=== PATIENT | female | born 1970 | race Caucasian/White ===

== ENCOUNTER 2025-03-21 11:29 | Emergency (ER) | payer BC, SELFPAY ==
[2025-03-21 11:35] VITALS: BP 161/95
[2025-03-21 12:06] LABS: Hematocrit 37.2 % (37.0-47.0); Hemoglobin 12.7 g/dL (12.0-16.0); Mean Corp Hgb Conc. 34.1 g/dL (33.0-37.0); Mean Corpuscular Volume 84.7 fL (81.0-99.0); Nucleated Red Blood Cells % 0 %; Platelet Count 336 10^3/uL (130-400); Red Cell Dist. Width 13.5 % (11.5-14.5)
[2025-03-21 12:23] LABS: HCG, Serum Qualitative Screen Negative
[2025-03-21 12:42] VITALS: BMI 28.3
[2025-03-21] MEDS: PEPCID 20 MG IV (12:46)
[2025-03-21] MEDS: ZOFRAN 4 MG IV (12:47)
[2025-03-21 12:58] LABS: ALT (SGPT) 16 U/L (0-35); AST (SGOT) 22 U/L (14-36); Albumin 4.3 g/dl (3.5-5.0); Alkaline Phosphatase 51 U/L (38-126); Blood Urea Nitrogen 20 mg/dl (7-17); Calcium 10.0 mg/dl (8.4-10.2); Carbon Dioxide 26 mmol/L (22-30); Chloride 108 mmol/L (98-107); Estimated Creatinine Clearance 104 ml/min; Glucose 114 mg/dl (70-99); Lipase 68 U/L (23-300); Potassium 5.1 mmol/L (3.5-5.1); Sodium 138 mmol/L (135-145); Total Protein 7.0 g/dl (6.3-8.2); eGFR > 60.00
[2025-03-21] MEDS: TORADOL 15 MG IV (12:59)
[2025-03-21 13:13] VITALS: BP 128/85
[2025-03-21 13:19] LABS: Urine Character Slightly Cloudy (Clear)
[2025-03-21 13:23] VITALS: BP 128/85
[2025-03-21 13:37] LABS: Urine Red Blood Cell 60-70 /HPF (0-2); Urine Squamous Cell 21-25 /LPF (Few)
--- NOTE | 2025-03-21 13:43 | ED.GENMED ---
History of Present Illness
General
Chief Complaint: Abdominal Pain
Time Seen by Provider: 03/21/25 11:52
History of Present Illness
History of Present Illness:
53 54-year-old female presents to the emergency department for evaluation of upper abdominal pain that began this morning associated with nausea but no vomiting. States it feels comparable to when she had her biliary colic but her gallbladder has
been since removed. She denies any fevers or chills, denies any diarrhea. No ill contacts, prior abdominal surgery includes cholecystectomy and . Has not eaten anything this morning
Review of Systems
Review of Systems
Allergies reviewed?: Yes
All Other Systems: ROS reviewed and negative except as documented in HPI and ROS
Phy Exam
Physical Exam
Physical Exam:
GEN: Well appearing, NAD, WDWN
HEENT: Oral mucosa moist, no scleral icterus
Cardiac: Regular rate
Lung: No respiratory distress, no tachypnea
Abdomen: Soft, moderate epigastric tenderness, no rigidity
MSK: No gross deformity or injuries
Skin: Good color, no pallor or jaundice, no rashes
Neuro: AO x3, moves all extremities freely
Psych: Calm, cooperative
Course
Orders/Labs/Results
Orders:
Orders
03/21/25 11:41
Electrocardiogram (*1) Urgent
Reason for Study: Abdominal Pain
EKG- Treatment ONCE
Test Result ONCE
03/21/25 11:50
Complete Blood Count/With Diff Urgent
Comprehensive Metabolic Panel Urgent
HCG, Serum Qualitative Screen Urgent
Comment: Notify provider if positive test present
Lipase Urgent
03/21/25 12:08
Famotidine [Pepcid] 20 mg IV NOW STA
Ondansetron Injectable [Zofran] 4 mg IV NOW STA
03/21/25 12:56
Ketorolac [Toradol] 15 mg IV NOW STA
03/21/25 13:03
Urinalysis Reflex To Culture Urgent
Date Specimen was Collected: 03/21/25
Time Specimen was Collected: 11:41
Urine Microscopic Reflex Cult Urgent
Urine Culture Urgent
SMITA Source: U
Specimen Description:
Date Specimen was Collected: 03/21/25
Time Specimen was Collected: 11:41
Abnormal Lab Results
03/21/25 03/21/25
11:50 13:03
WBC 13.2 H 10^3/uL
(4.8-10.8)
Absolute Neuts (auto) 10.5 H 10^3/uL
(1.4-6.5)
Absolute Monos (auto) 0.7 H 10^3/uL
(0.1-0.6)
Neutrophils % 79.1 H %
(42.2-75.2)
Lymphocytes % 14.0 L %
(20.5-51.1)
Chloride 108 H mmol/L
(98-107)
BUN 20 H mg/dl
(7-17)
Glucose 114 H mg/dl
(70-99)
Ur Occult Blood Reflex 4+ A
(Negative)
Leukocyte Esterase Rfl 1+ A
(Negative)
Urine RBC 60-70 A /HPF
(0-2)
Urine Bacteria (Reflex) Few A
(Negative)
Urine Albumin (Reflex) 2+ A
(Neg - Trace)
03/21/25 12:52
03/21/25 11:50
Vital Signs
Initial and Last Documented VS:
Initial Vital Signs
Temp Pulse Resp BP Pulse Ox
98.5 F 76 18 161/95 99
03/21/25 11:35 03/21/25 11:35 03/21/25 11:35 03/21/25 11:35 03/21/25 11:35
Last Documented Vital Signs
Temp Pulse Resp BP Pulse Ox
97.6 F 74 15 120/80 98
03/21/25 13:23 03/21/25 14:15 03/21/25 14:15 03/21/25 14:00 03/21/25 14:15
MDM/Problems Addressed
MDM/Problems Addressed:
Patient's labs are unrevealing,, her pain did improve modestly after treatment in the emergency department. Most likely gastritis/peptic ulcer disease, no jaundice to suggest choledocholithiasis, no lower abdominal tenderness warranting imaging at
this time, discussed supportive care
*Pulse Oximetry
SaO2: 99
Oxygen Mode of Delivery: Room air
Patient hypoxic: no
*Critical Care Note
Total Time (30-74mins, 75-104mins- exclusive of procedures): Not Applicable
ED Attending Note
-
Portions of this chart may have been created with voice recognition software.� Occasional wrong word or��sound alike� substitutions may have occurred due to the inherent limitations of voice recognition software.
Discharge Plan
Departure
Patient Disposition: Home (Routine Discharge)
Date of Disposition: 03/21/25
Time of Disposition: 13:43
Patient with high blood pressure during this ER visit?: No
Discharge Problem:
Gastritis
Instructions: Gastritis (DC)
Prescriptions:
New
pantoprazole 40 mg tablet,delayed release (DR/EC)
40 mg PO DAILY 10 Days Qty: 10 0RF
famotidine 20 mg tablet
20 mg PO BID Qty: 14 0RF
Interventions
Interventions:
*Risk Screen - Suicide Last Done: 03/21/25 11:35
*General Assessment Last Done: 03/21/25 11:35
*Neglect/Abuse Screening Last Done: 03/21/25 11:35
*ED- Fall Risk Assessment Last Done: 03/21/25 13:23
*ED COVID-19 Vaccine History Last Done: 03/21/25 13:23
*Nursing Disposition Last Done: 03/21/25 14:45
YZ-Pgbbfh-Zgioadsuhz Assessment Last Done: 03/21/25 13:23
Discharge Date and Time
Discharge Date/Time: 03/21/25 14:45
Print Language: ITALIAN
[2025-03-21 14:00] VITALS: BP 120/80
== END 2025-03-21 14:45 | disposition home or self-care (01) ==
LOC: EMR 11:29
PROVIDERS: EMERGENCY PHYSICIAN Emergency Medicine; FAMILY PHYSICIAN Nurse Practitioner Family
DX: K29.70 Gastritis, unspecified, without bleeding (principal)
CPT/HCPCS: 99283; 96374; 96375; 80053; 81003; 81015; 83690; 84703; 85025; 87086; 93005

== ENCOUNTER 2025-03-22 15:53 | Day surgery (SDC) | payer BC, SELFPAY ==
[2025-03-22] VITALS (16 sets, daily range): BP systolic 103–127; BP diastolic 68–91; BMI 28.8
--- NOTE | 2025-03-22 09:44 | ED.GENMED ---
History of Present Illness
<Eric Martinez PA-C - Last Filed: 03/22/25 12:49>
General
Chief Complaint: Abdominal Pain
Source: patient and records
Time Seen by Provider: 03/22/25 09:26
History of Present Illness
History of Present Illness:
54-year-old female with past medical history of GERD presenting back to the emergency department after being seen yesterday for worsening pain within the right lower quadrant of her abdomen noting that the pain yesterday was only within the
epigastrium but overnight seem to have localized more to the right lower quadrant. She endorses waxing and waning nausea but no vomiting. There are no other associated symptoms including fevers, chills, rigors, bowel changes or urinary symptoms.
Patient states she does not have much of an appetite and only had a little bit of water this morning. She did not take anything for pain prior to arrival she does note prior to leaving the emergency department yesterday feeling better than when she
had initially presented.
Past History
<Eric Martinez PA-C - Last Filed: 03/22/25 12:49>
Past History
ED Past Medical History: GERD
ED Past Surgical History: Cholecystectomy, , Gynecological, Tonsilectomy and Other
Social History
Tobacco: Non-smoker
Alcohol: Occasional
Drug: None
Personal:
Living: with family
Review of Systems
<Eric Martinez PA-C - Last Filed: 03/22/25 12:49>
Review of Systems
All Other Systems: ROS reviewed and negative except as documented in HPI and ROS
Phy Exam
<Eric Martinez PA-C - Last Filed: 03/22/25 12:49>
Physical Exam
Physical Exam:
GENERAL: Alert , in no apparent distress, appears uncomfortable, pain worse with palpation
EYE: clear conjunctiva b/l
HEAD: NCAT
ENT: o/p clr, mmm.
CARDIAC: Regular rate and rhythm .
LUNGS: Clear breath sounds bilaterally, no acute respiratory distress, no wheezes/rales/rhonchi
ABDOMEN: Soft, moderate right lower quadrant tenderness with guarding but no rebound tenderness, no cvat
NEUROLOGICAL: Alert and oriented
SKIN: Warm and dry, skin intact.
MUSCULOSKELETAL: well perfused.
PSYCH: Normal and appropriate interaction.
Scores
<Eric Martinez PA-C - Last Filed: 03/22/25 12:49>
Heart Failure Risk
Heart Failure Risk Score: Not Applicable
Heart Score for Chest Pain Patients
STEMI patient?: Not applicable
Withdrawal Assessment of Alcohol
Withdrawal Assessment Completed?: Not applicable
Course
<Eric Martinez PA-C - Last Filed: 03/22/25 12:49>
Orders/Labs/Results
Orders:
Orders
03/22/25 09:37
CT Abd/pelvis W Iv Cont Urgent
Comment:
Reason For Exam: RLQ pain
03/22/25 09:43
0.9% Sodium Chloride 1000 ml [Nss] 1,000 ml IV BOLUS
HYDROmorphone [Dilaudid] 0.5 mg IV NOW STA
Ondansetron Injectable [Zofran] 4 mg IV NOW STA
03/22/25 09:55
Complete Blood Count/With Diff Urgent
Comprehensive Metabolic Panel Urgent
Lipase Urgent
03/22/25 09:56
Urinalysis Reflex To Culture Urgent
Date Specimen was Collected: 03/22/25
Time Specimen was Collected: 09:56
Urine Microscopic Reflex Cult Urgent
03/22/25 11:32
HYDROmorphone [Dilaudid] 0.5 mg .ROUTE .STK-MED ONE
03/22/25 11:33
HYDROmorphone [Dilaudid] 0.5 mg IV NOW STA
03/22/25 12:12
Fentanyl Citrate/Pf [Sublimaze] 25 mcg IV [id number] PRN
HYDROmorphone [Dilaudid] 0.25 mg IV PACU-[id number] PRN
HYDROmorphone [Dilaudid] 0.5 mg IV PACU-Q5MPRN PRN
Ondansetron Injectable [Zofran] 4 mg IV PACU-ONCEPRN PRN
Prochlorperazine [Compazine] 5 mg IV PACU-ONCEPRN PRN
Notify MD As Directed
Notify physician if: for SDS patients with known or suspected sleep obstructive sleep apnea, monitor in the
PACU.
Notify MD for any apneic/desaturation episodes
O2 Therapy [RESP] Urgent
Titrate/Wean O2 to maintain O2 sat greater than (%): 92
Special Instructions: -Provide supplemental oxygen to achieve O2 sat of 92% or greater.
-After 15 min, may wean O2 and discontinue if patient is able to maintain O2 sat of 92%
or greater during recovery period.
If patient is a discharge home, without oxygen therapy, notify anestheiologist if
unable to maintain O2 SAT of 92% or greater on room air for MD clearance.
03/22/25 12:15
Normosol (Mult Electrolytes) [Normosol-R/Plasmalyte-A] 1,000 ml IV PER PROTOCOL
03/22/25 12:25
Piperacillin/Tazo 3.375 Gram [Zosyn] 3.375 gram in 50 ml IV NOW
Abnormal Lab Results
03/22/25 03/22/25
09:55 09:56
WBC 11.4 H 10^3/uL
(4.8-10.8)
RBC 4.19 L 10^6/uL
(4.20-5.40)
Hct 35.4 L %
(37.0-47.0)
Absolute Neuts (auto) 9.4 H 10^3/uL
(1.4-6.5)
Absolute Lymphs (auto) 1.1 L 10^3/uL
(1.2-3.4)
Absolute Monos (auto) 0.8 H 10^3/uL
(0.1-0.6)
Neutrophils % 82.6 H %
(42.2-75.2)
Lymphocytes % 9.4 L %
(20.5-51.1)
Glucose 119 H mg/dl
(70-99)
Ur Occult Blood Reflex 4+ A
(Negative)
Urine RBC 3-6 A /HPF
(0-2)
Urine Albumin (Reflex) 1+ A
(Neg - Trace)
03/22/25 09:55
03/22/25 09:55
Vital Signs
Initial and Last Documented VS:
Initial Vital Signs
Temp Pulse Resp BP Pulse Ox
98.6 F 98 18 124/91 98
03/22/25 09:14 03/22/25 09:14 03/22/25 09:14 03/22/25 09:14 03/22/25 09:14
Last Documented Vital Signs
Temp Pulse Resp BP Pulse Ox
98.6 F 82 26 113/81 99
03/22/25 09:14 03/22/25 12:15 03/22/25 12:15 03/22/25 12:00 03/22/25 12:15
<Roz Lira MD - Last Filed: 03/22/25 10:20>
Orders/Labs/Results
Orders:
Orders
03/22/25 09:37
CT Abd/pelvis W Iv Cont Urgent
Comment:
Reason For Exam: RLQ pain
03/22/25 09:43
0.9% Sodium Chloride 1000 ml [Nss] 1,000 ml IV BOLUS
HYDROmorphone [Dilaudid] 0.5 mg IV NOW STA
Ondansetron Injectable [Zofran] 4 mg IV NOW STA
03/22/25 09:55
Complete Blood Count/With Diff Urgent
Comprehensive Metabolic Panel Urgent
Lipase Urgent
03/22/25 09:56
Urinalysis Reflex To Culture Urgent
Date Specimen was Collected: 03/22/25
Time Specimen was Collected: 09:56
Urine Microscopic Reflex Cult Urgent
03/22/25 11:32
HYDROmorphone [Dilaudid] 0.5 mg .ROUTE .STK-MED ONE
03/22/25 11:33
HYDROmorphone [Dilaudid] 0.5 mg IV NOW STA
03/22/25 12:12
Fentanyl Citrate/Pf [Sublimaze] 25 mcg IV [id number] PRN
HYDROmorphone [Dilaudid] 0.25 mg IV PACU-Q5MPRN PRN
HYDROmorphone [Dilaudid] 0.5 mg IV PACU-Q5MPRN PRN
Ondansetron Injectable [Zofran] 4 mg IV PACU-ONCEPRN PRN
Prochlorperazine [Compazine] 5 mg IV PACU-ONCEPRN PRN
Notify MD As Directed
Notify physician if: for SDS patients with known or suspected sleep obstructive sleep apnea, monitor in the
PACU.
Notify MD for any apneic/desaturation episodes
O2 Therapy [RESP] Urgent
Titrate/Wean O2 to maintain O2 sat greater than (%): 92
Special Instructions: -Provide supplemental oxygen to achieve O2 sat of 92% or greater.
-After 15 min, may wean O2 and discontinue if patient is able to maintain O2 sat of 92%
or greater during recovery period.
If patient is a discharge home, without oxygen therapy, notify anestheiologist if
unable to maintain O2 SAT of 92% or greater on room air for MD clearance.
03/22/25 12:15
Normosol (Mult Electrolytes) [Normosol-R/Plasmalyte-A] 1,000 ml IV PER PROTOCOL
03/22/25 12:25
Piperacillin/Tazo 3.375 Gram [Zosyn] 3.375 gram in 50 ml IV NOW
Abnormal Lab Results
03/22/25 03/22/25
09:55 09:56
WBC 11.4 H 10^3/uL
(4.8-10.8)
RBC 4.19 L 10^6/uL
(4.20-5.40)
Hct 35.4 L %
(37.0-47.0)
Absolute Neuts (auto) 9.4 H 10^3/uL
(1.4-6.5)
Absolute Lymphs (auto) 1.1 L 10^3/uL
(1.2-3.4)
Absolute Monos (auto) 0.8 H 10^3/uL
(0.1-0.6)
Neutrophils % 82.6 H %
(42.2-75.2)
Lymphocytes % 9.4 L %
(20.5-51.1)
Glucose 119 H mg/dl
(70-99)
Ur Occult Blood Reflex 4+ A
(Negative)
Urine RBC 3-6 A /HPF
(0-2)
Urine Albumin (Reflex) 1+ A
(Neg - Trace)
03/22/25 09:55
03/22/25 09:55
Vital Signs
Initial and Last Documented VS:
Initial Vital Signs
Temp Pulse Resp BP Pulse Ox
98.6 F 98 18 124/91 98
03/22/25 09:14 03/22/25 09:14 03/22/25 09:14 03/22/25 09:14 03/22/25 09:14
Last Documented Vital Signs
Temp Pulse Resp BP Pulse Ox
98.6 F 82 26 113/81 99
03/22/25 09:14 03/22/25 12:15 03/22/25 12:15 03/22/25 12:00 03/22/25 12:15
<Eric Martinez PA-C - Last Filed: 03/22/25 12:49>
MDM/Problems Addressed
Differential Diagnosis Includes:
Appendicitis
Colitis
Renal/ureteral colic
Cystitis
Pyelonephritis
Pancreatitis
GERD/gastritis
Peptic ulcer disease
MDM/Problems Addressed:
54-year-old female presenting to the ER for evaluation of worsening right lower quadrant abdominal pain, pain yesterday initially only within the epigastrium. Had labs and was treated with medications here, labs did reveal a mild leukocytosis. No
imaging done so will add on CT imaging today. Dilaudid, Zofran and fluids ordered for symptomatic relief. Disposition pending
<Eric Martinez PA-C - Last Filed: 03/22/25 12:49>
*Radiology
Radiology exam reviewed: radiology read reviewed
*Pulse Oximetry
SaO2: 98
Oxygen Mode of Delivery: Room air
Patient hypoxic: no
*Critical Care Note
Total Time (30-74mins, 75-104mins- exclusive of procedures): Not Applicable
Data Reviewed
Review of Other/Old Records Reveals: Labs and Records
<Eric Martinez PA-C - Last Filed: 03/22/25 12:49>
Patient Management
Discussion with other providers: Comptroller
Escalation/DeEscalation of care consider admission/obs:
Patient CT is consistent with uncomplicated acute appendicitis. General surgery team was notified and will admit patient to their service with plans to take to the OR. We did treat patient with an additional dose of hydromorphone after she did not
her pain initially was improved however started to return.
ED Attending Note
<Eric Martinez PA-C - Last Filed: 03/22/25 12:49>
-
Portions of this chart may have been created with voice recognition software.� Occasional wrong word or��sound alike� substitutions may have occurred due to the inherent limitations of voice recognition software.
<Roz Lira MD - Last Filed: 03/22/25 10:20>
ED Attending Note
Patient seen and examined by attending physician: Yes
I performed the substantive portion of visit, reviewed & personally made and approve the management plan that is documented in note by myself or JONNATHAN.: Yes
ED Attending Note:
Patient appears nontoxic. Patient has considerable right sided mid and lower abdominal tenderness with rebound. Patient is breathing comfortably. Awaiting CT.
Discharge Plan
Departure
Patient Disposition: Admit
Date of Disposition: 03/22/25
Time of Disposition: 11:09
Presentation/result/management discussed w/ accepting MD/DO: Dr. Austin
Discharge Problem:
Acute appendicitis
Prescriptions:
No Action
pantoprazole 40 mg tablet,delayed release (DR/EC)
40 mg PO DAILY 10 Days Qty: 10 0RF
famotidine 20 mg tablet
20 mg PO BID Qty: 14 0RF
Metamucil Packet
1 packet PO DAILYPRN PRN (Reason: constipation)
Theragen Tablet
1 tab PO DAILY
hydroxyzine HCl 50 mg tablet
50 mg PO DAILYPRN PRN (Reason: sleep)
alprazolam 0.25 mg tablet
0.25 mg PO DAILYPRN PRN (Reason: anxiety)
calcium carbonate [Tums] 200 mg calcium (500 mg) Tablet,Chewable
800 mg PO DAILYPRN PRN (Reason: upset stomach)
ibuprofen 200 mg Tablet
400 mg PO DAILYPRN PRN (Reason: mild pain)
duloxetine 30 mg capsule,delayed release(DR/EC)
30 mg PO DAILYPRN PRN (Reason: musculoskeletal pain)
Referrals:
Kath Velez CRNP [Family Provider, Family Practice]
Interventions
Interventions:
*Risk Screen - Suicide Last Done: 03/22/25 09:14
*General Assessment Last Done: 03/22/25 09:14
*Neglect/Abuse Screening Last Done: 03/22/25 09:46
*ED- Fall Risk Assessment Last Done: 03/22/25 09:46
*ED COVID-19 Vaccine History Last Done: 03/22/25 09:46
ME-Rbtjhp-Ukncwpkfwq Assessment Last Done: 03/22/25 09:46
Discharge Date and Time
Print Language: WALLISIAN
[2025-03-22] MEDS: DILAUDID 0.5 MG IV ×3 (10:00→21:45)
[2025-03-22] MEDS: ZOFRAN 4 MG IV ×2 (10:00→20:14)
[2025-03-22] MEDS: NSS 1000 IV (10:02)
[2025-03-22 10:10] LABS: Urine Character Clear (Clear)
[2025-03-22 10:14] LABS: Hematocrit 35.4 % (37.0-47.0); Hemoglobin 12.0 g/dL (12.0-16.0); Mean Corp Hgb Conc. 33.9 g/dL (33.0-37.0); Mean Corpuscular Volume 84.5 fL (81.0-99.0); Nucleated Red Blood Cells % 0 %; Platelet Count 306 10^3/uL (130-400); Red Cell Dist. Width 13.6 % (11.5-14.5)
[2025-03-22 10:26] LABS: ALT (SGPT) 14 U/L (0-35); AST (SGOT) 19 U/L (14-36); Albumin 4.0 g/dl (3.5-5.0); Alkaline Phosphatase 53 U/L (38-126); Blood Urea Nitrogen 11 mg/dl (7-17); Calcium 9.2 mg/dl (8.4-10.2); Carbon Dioxide 25 mmol/L (22-30); Chloride 107 mmol/L (98-107); Estimated Creatinine Clearance 89 ml/min; Glucose 119 mg/dl (70-99); Lipase 67 U/L (23-300); Potassium 3.7 mmol/L (3.5-5.1); Sodium 137 mmol/L (135-145); Total Protein 6.4 g/dl (6.3-8.2); eGFR > 60.00
[2025-03-22 10:30] LABS: Urine Squamous Cell 16-20 /LPF (Few)
--- NOTE | 2025-03-22 11:45 | CM ---
CM reviewed chart, patient seen with . Patient is a 54-year-old female with past medical history of GERD presenting back to the emergency department after being seen yesterday for worsening pain within the right lower quadrant of her abdomen
noting that the pain yesterday was only within the epigastrium but overnight seem to have localized more to the right lower quadrant.
Initial assessment completed by . Patient resides with , three sons, and four dogs in a multiple story home, bedroom on second floor, two steps to enter home. Patient is typically independent with ADLS/IADLS. Per , he is home
all day. Patient denies VN/SNF hx. PCP Kath Velez, Pharmacy [facility] in [place]. Patients denies insecurities at home. CM will continue to follow for all discharge planning needs.
Plan; home with likely no needs
--- NOTE | 2025-03-22 12:45 | W.SUR.PREOP ---
Pre-Operative Surgical Note
-
I have examined this patient prior to the performance of the scheduled procedure.
The patient's condition is unchanged from the time of the current History and
Physical and the patient is able to undergo the scheduled procedure.
--- NOTE | 2025-03-22 12:46 | HPS.HSE ---
Family Physician
-
Family Physician: NIK Ren
Chief Complaint
-
Right lower quadrant abdominal pain
History of Present Illness
This is a 54-year-old female with a history of laparoscopic cholecystectomy, x 2 who presents with acute onset abdominal pain initially epigastric, she seen here in the ED yesterday and discharged with gastritis however over the course of
the day her pain became more focal to the right lower quadrant and she presented here to the hospital. CT scan demonstrated acute appendicitis. General surgery consulted. The patient denies Fever, Chest Pain, Shortness Of Breath, Nausea, Vomiting,
changes in urinary and bowel habits, unintentional weight loss.
Medical History
Past Medical History
Past Medical History: Reports GERD
Past Surgical History: Reports Cholecystectomy and
Social History
Tobacco: Non-smoker
Alcohol: Occasional
Drug: None
Personal:
Living: With Family
Family History
Family History: Not pertinent
Allergies / Home Medications
Allergies reflects when Allergies were last updated in [employer].
Home Medications with original date entered in [employer]
Allergy/Medication List:
No allergies.
Alprazolam 0.25 mg p.o. daily as needed for anxiety
Duloxetine 30 mg p.o. daily as needed
Famotidine 20 mg p.o. twice daily for GERD
Review of Systems
-
A 12 point ROS was completed and negative except as noted: Yes
Physical Exam
Vital Signs
Vital Signs
Temp Pulse Resp BP Pulse Ox
98.6 F 82 26 113/81 99
03/22/25 09:14 03/22/25 12:15 03/22/25 12:15 03/22/25 12:00 03/22/25 12:15
Physical Exam
General: Well Developed
HEENT: NormoCephalic
Respiratory: Non Labored Respirations
GI: Soft, Non Distended and Tender (Tender to palpation in the right lower quadrant)
Laboratory Results
-
03/22/25 09:55
03/22/25 09:55
Laboratory Results
Total Bilirubin 1.0 mg/dl (0.2-1.3) 03/22/25 09:55
AST 19 U/L (14-36) 03/22/25 09:55
ALT 14 U/L (0-35) 03/22/25 09:55
Alkaline Phosphatase 53 U/L (38-126) 03/22/25 09:55
Lipase 67 U/L (23-300) 03/22/25 09:55
Data Reviewed
-
CT Scan: Image Personally Visualized and interpreted, Report Reviewed by me, Discussed with Patient and Discussed with Family
Lab Data: Labs Reviewed by me and Discussed with Patient
Impression/Plan
-
IMPRESSION: This is a 54-year-old female who presents with acute onset abdominal pain over the past 24 to 48 hours. Exam, imaging, blood work all concerning for acute appendicitis.
PLAN:
Will plan for a laparoscopic appendectomy in the OR today.
N.p.o., IV fluids, IV antibiotics ordered.
Risks/Benefits/Alternatives, expected postoperative course and possible complications (bleeding, infection, injury to surrounding structures, acute/chronic pain) discussed at length. Patient wishes to proceed with surgery. All questions answered.
Consent obtained.
I spent 75 minutes in total for the care of this patient today including direct patient care and counseling, reviewing labs, imaging, coordination of care, as well as documentation.
[2025-03-22] MEDS: ZOSYN 50 IV ×2 (13:09→19:52)
[2025-03-22] MEDS: TYLENOL 650 MG PO ×3 (13:16→23:49)
[2025-03-22] MEDS: NORMOSOL-R/PLASMALYTE-A 1000 IV ×2 (14:25→20:10)
--- NOTE | 2025-03-22 16:51 | W.IMMPOSTOP ---
Surgical Immed Post Op Note
-
Primary Surgeon: He Wyatt MD
Assisting Surgeon: None
Pre-op Diagnosis: Acute appendicitis
Post-op Diagnosis: Same
Procedure Performed: Laparoscopic appendectomy
Anesthesia Type: General
Specimen / Cultures: Appendix
Estimated Blood Loss: 3 cc
Complications: None
Operative Findings: Inflamed appendix with confined perforation into the mesoappendix which was not violated so no gross spillage of pus was identified. Base was uninvolved so was ligated with 2-0 PDS Endoloops and divided.
POST OP PLAN:
Imaging: None
Labs: Routine AM
Diet: Advance to Regular as tolerated
Analgesia: Tylenol 650mg q6 Daylin, Dilaudid 0.5mg q2h PRN
Neuro/vascular checks: Per unit protocol
AC/AP: Hold Therapeutic AC, Ok for DVT PPx
Activity: Ad Yajaira
Wound/Incisions/Drains: Routine
Abx: Will continue antibiotics while admitted, will stop on discharge
Dispo: RNF, anticipate discharge home tomorrow.
--- NOTE | 2025-03-22 16:54 | OR.RPT ---
Operative Report
Operative Report
Patient Name: Shaylee Liu
: 1970
Date of Operation: 03/22/2025
Preoperative Diagnosis: Acute Appendicitis
Postoperative Diagnosis: Same
Procedure(s):
Laparoscopic Appendectomy
Surgeon(s):
Dr. Wyatt
Senior Tax Analyst(s):
None
Anesthesia: General
Estimated Blood Loss: 3 cc
Urine Output: None
Drains/Lines/Implants: None
Specimens:
1. Appendix
HPI/Surgical Indications:
This is a 54-year-old female who presents with a 2 day history of abdominal pain. Exam, labs and imaging are consistent with acute appendicitis. Risks/Benefits/Alternatives were discussed at length, and the patient agreed to proceed with surgery.
Operative Findings: Inflamed appendix with confined perforation into the mesoappendix which was not violated so no gross spillage of pus was identified. Base was uninvolved so was ligated with 2-0 PDS Endoloops and divided.
Procedure Description:
The patient was placed in the supine position, with the left arm tucked, and general anesthesia was induced. The abdomen was prepared and draped in a sterile fashion so as to expose the entire abdomen. A surgical time out was taken. Abdominal access
was obtained with a left subcostal Veress entry which required a single pass followed by a 5 mm left lower quadrant Optiview trocar. After confirming no injury on entrance, two additional 5mm ports were placed in the suprapubic area just off
midline and below the umbilicus. The patient was placed in Trendelenberg with the right slightly up . The appendix was identified and a window was created in the mesoappendix. The appendix was suppurative and inflamed and with what appeared to be a
perforated abscess cavity within the mesoappendix. Using a laparoscopic bipolar energy device, the meso appendix was divided, without violation of the abscess. The base of the appendix appeared uninvolved and was ligated/divided using two 0-PDS
Endoloops and the energy device. The appendix was placed in a specimen retrieval bag. Hemostasis was confirmed and the ports were removed under visualization. The specimen was passed off the field. The umbilical port was closed with a
lzgrud-su-idlhr 0-PDS and the skin for all three ports was closed with interrupted monocryls and covered with dermabond. The patient was awoken from anesthesia in good condition and transported to the recovery area.
I was the attending physician and performed the procedure with no assistance. I was present for all portions of the case.
He Wyatt MD
--- NOTE | 2025-03-22 18:25 | PTCARENOTE ---
Telephone report received from TELEVISION EQUIPMENT OPERATOR Tristan; patient arrived in bed @18:13 with IVF infusing; VSS; 3 lap sites & 1 port site with surgical glue (umbilical site has c/d/i 2x2 gauze & tape that TELEVISION EQUIPMENT OPERATOR had placed when little drainage had appeared),
electronic admission completed at bedside, will give detailed report to nightshift RN to continue with assessment.
[2025-03-22] MEDS: TYLENOL PO (18:41)
[2025-03-22] MEDS: PEPCID 20 MG PO (19:51)
[2025-03-22] MEDS: DILAUDID 1 MG IV (23:50)
[2025-03-23] MEDS: ZOSYN 50 IV ×2 (02:16→07:45)
[2025-03-23 02:40] VITALS: BP 95/59
[2025-03-23] MEDS: TYLENOL PO ×2 (04:45→13:04)
[2025-03-23] MEDS: DILAUDID 0.5 MG IV (06:23)
[2025-03-23 07:04] LABS: Hematocrit 35.5 % (37.0-47.0); Hemoglobin 11.5 g/dL (12.0-16.0); Mean Corp Hgb Conc. 32.4 g/dL (33.0-37.0); Mean Corpuscular Volume 87.7 fL (81.0-99.0); Nucleated Red Blood Cells % 0 %; Platelet Count 293 10^3/uL (130-400); Red Cell Dist. Width 13.9 % (11.5-14.5)
[2025-03-23 07:15] VITALS: BP 112/71
[2025-03-23 07:33] LABS: Blood Urea Nitrogen 9 mg/dl (7-17); Calcium 8.7 mg/dl (8.4-10.2); Carbon Dioxide 26 mmol/L (22-30); Chloride 104 mmol/L (98-107); Estimated Creatinine Clearance 104 ml/min; Glucose 118 mg/dl (70-99); Potassium 4.0 mmol/L (3.5-5.1); Sodium 138 mmol/L (135-145); eGFR > 60.00
[2025-03-23] MEDS: TYLENOL 650 MG PO (07:45)
[2025-03-23] MEDS: PEPCID PO (07:47)
--- NOTE | 2025-03-23 08:49 | W.PN.GS2 ---
Today's Communication / Plan
-
Dispo planning
Assessment / Plan
-
This is a 54-year-old female postoperative day 1 from a laparoscopic appendectomy for acute appendicitis. Doing well, expected postoperative course.
Will plan to DC home today
Time Spent
Total Time Spent with Patient (in minutes): 15
Subjective Data
-
Date of Service: March 23, 2025
Interval Events:
No acute events overnight. Slept well. Pain still high but improving and controlled on current regimen. Denies Nausea/Vomiting, +bowel function. Tolerating diet. The patient states that she is on her period which started yesterday, and it is a
little heavier than usual but is not soaking more than 1 pad.
Objective Data
-
Intake and Output
03/22/25 03/23/25 03/24/25
06:59 06:59 06:59
Intake Total 1290 / 1290 50 / 50
Balance 1290 / 1290 50 / 50
Intake:
Oral fluids 240 / 240
IV fluids (Total) 950 / 950
Normosol 200 / 200
IV piggybacks 100 / 100 50 / 50
Other:
Number of approximated MODERATE 2
amounts of urine
Vital Signs
Temp Pulse Resp BP Pulse Ox
98.1 F 62 15 95/59 99
03/23/25 02:40 03/23/25 02:40 03/23/25 02:40 03/23/25 02:40 03/23/25 07:45
Lab Results
03/23/25 06:44
03/23/25 06:44
Calcium 8.7 mg/dl (8.4-10.2) 03/23/25 06:44
Total Bilirubin 1.0 mg/dl (0.2-1.3) 03/22/25 09:55
AST 19 U/L (14-36) 03/22/25 09:55
ALT 14 U/L (0-35) 03/22/25 09:55
Alkaline Phosphatase 53 U/L (38-126) 03/22/25 09:55
Total Protein 6.4 g/dl (6.3-8.2) 03/22/25 09:55
Albumin 4.0 g/dl (3.5-5.0) 03/22/25 09:55
Physical Exam
-
GENERAL/NEURO: Awake, Alert, no distress
CHEST: Unlabored breathing on RA
ABDOMEN: Soft, appropriately tender, nondistended, incisions clean dry and intact.
Patient has a james catheter: No
Patient has a central line: No
--- NOTE | 2025-03-23 08:50 | W.PN.GS2 ---
Addendum entered and electronically signed by He Wyatt MD 03/23/25 10:30:
I saw and examined the patient independently.
The resident's documentation was reviewed and I agree with the note, assessment and plan except where noted below.
Comment: Patient seen and examined independently, see previous progress note for attending plan.
Original Note:
Today's Communication / Plan
-
Continue antibiotics while admitted
Continue pain control, antiemetics as needed
Plan for discharge home later today
Assessment / Plan
-
Assessment: Patient is a 54-year-old female here for acute appendicitis s/p laparoscopic appendectomy POD #1.
Tolerating oral intake, no BM, some flatus
Afebrile, leukocytosis resolved
Pain well-controlled with Tylenol, Dilaudid
Nausea, vomiting well-controlled with ondansetron
Plan:
Plan for discharge home later today
Continue piperacillin/tazobactam while admitted
Pain control with Tylenol scheduled, Dilaudid as needed
Ondansetron for nausea/vomiting
OOB as tolerated
DVT PPx: SCDs
GI PPx: Pantoprazole
Subjective Data
-
Date of Service: March 23, 2025
Patient seen at the bedside on POD #1 (laparoscopic appendectomy). Feeling okay. Required pain control (Tylenol, Dilaudid) and antiemetics since surgery yesterday. No pain currently. No BM, some flatus. OOB to void. Denies nausea or vomiting
currently. Ate some bites of turkey last night, otherwise just consuming liquids.
Objective Data
-
Intake and Output
03/22/25 03/23/25 03/24/25
06:59 06:59 06:59
Intake Total 1290 / 1290 50 / 50
Balance 1290 / 1290 50 / 50
Intake:
Oral fluids 240 / 240
IV fluids (Total) 950 / 950
Normosol 200 / 200
IV piggybacks 100 / 100 50 / 50
Other:
Number of approximated MODERATE 2
amounts of urine
Vital Signs
Temp Pulse Resp BP Pulse Ox
98.1 F 62 15 95/59 99
03/23/25 02:40 03/23/25 02:40 03/23/25 02:40 03/23/25 02:40 03/23/25 07:45
Lab Results
03/23/25 06:44
03/23/25 06:44
Calcium 8.7 mg/dl (8.4-10.2) 03/23/25 06:44
Total Bilirubin 1.0 mg/dl (0.2-1.3) 03/22/25 09:55
AST 19 U/L (14-36) 03/22/25 09:55
ALT 14 U/L (0-35) 03/22/25 09:55
Alkaline Phosphatase 53 U/L (38-126) 03/22/25 09:55
Total Protein 6.4 g/dl (6.3-8.2) 03/22/25 09:55
Albumin 4.0 g/dl (3.5-5.0) 03/22/25 09:55
Physical Exam
-
General: No apparent distress.
Abdominal: Soft, mildly TTP on right side. Surgical sites clean, dry, intact. Nondistended. No rigidity or guarding. No ecchymoses or erythema.
Patient has a james catheter: No
Patient has a central line: No
--- NOTE | 2025-03-23 09:15 | CM ---
CM following re: discharge planning.
Reviewed pt's chart, met with pt and pt's daughter at bedside.
Pt is a 54 year old female, admitted with SDC status and primary dx of acute appendicitis , POD#1 s/p laparoscopic appendectomy.
Pt reports she lives with and 3 sons in a 2SH, 2 steps to enter, has 4 supportive children. Pt described herself as independent in all areas [employer], drives, works.
Discharge order noted. Pt is aware, expressed her agreement and pt stated her daughter or will transport home.
No after care VN services identified.
PCP: Kath Velez
Pharmacy: [facility] [place]
D/C plan: home no needs. or daughter to transport.
[2025-03-23 11:20] VITALS: BP 122/74
[2025-03-23] MEDS: ROXICODONE 5 MG PO (13:04)
== END 2025-03-23 13:56 | disposition home or self-care (01) ==
LOC: SDS 15:53
PROVIDERS: Physician Assistant Medical; ATTENDING PHYSICIAN Surgery; EMERGENCY PHYSICIAN Emergency Medicine; FAMILY PHYSICIAN Nurse Practitioner Family
DX: K35.80 Unspecified acute appendicitis (principal)
CPT/HCPCS: 44970; 74177; 80048; 80053; 81003; 81015; 83690; 85025; 88304; 96361; 96365; 96375; 96376; 99285; Q9967